=== PATIENT | female | born 1960 | race African-American/Black ===

== ENCOUNTER 2021-06-02 11:04 | Inpatient (IN) | payer MEDICAID ==
[~2021-06-02] VITALS: Ht 167.6 cm; Wt 71.7 kg
[2021-06-02 11:58] LABS: BASOPHILS % 0.5 % (0.0-2.0); EOSINOPHILS % 0.1 % (0.0-5.0); HEMATOCRIT. 43.9 % (36.0-48.0); HEMOGLOBIN. 14.4 g/dL (12.0-16.0); LYMPHOCYTES % 9.4 % (20.0-50.0); MEAN CORPUSCULAR HEMOGLOBIN 27.2 pg (28.0-32.0); MEAN CORPUSCULAR VOLUME 83.1 fL (81.0-99.0); MEAN PLATELET VOLUME 8.8 fl (7.4-10.4); MONOCYTES % 3.9 % (2.0-8.0); NEUTROPHILS % 86.1 % (40.0-76.0); PLATELET 307 x1000/uL (130-400); RED BLOOD CELL COUNT 5.29 mill/uL (4.2-5.4); RED CELL DISTRIBUTION WIDTH 13.3 % (11.6-14.6)
[2021-06-02 12:05] LABS: CHLORIDE 104 mEq/L (98-107)
[2021-06-02] MEDS ORDERED: MORPHINE SULFATE 4 MG/ML CPJ (NOT FOR IM USE) IV STA (12:19)
[2021-06-02] MEDS: ENALAPRIL 5MG TABLET PO SCH ×2 (13:02→13:51)
[2021-06-02 14:50] LABS: INR 1.4; PROTHROMBIN TIME 14.4 sec (9.6-11.0)
[2021-06-02] MEDS ORDERED: IOHEXOL-300 100 ML BOTTLE ONE (15:13)
[2021-06-02] MEDS ORDERED: AMLODIPINE 5MG TABLET PO ONE (15:30)
[2021-06-02] MEDS ORDERED: CLONIDINE 0.1MG TABLET PO PRN (16:45)
[2021-06-02] MEDS ORDERED: IPRATROPIUM/ALBUTEROL 0.5-3(2.5)MG/3ML NEB HHN PRN (16:45)
[2021-06-02] MEDS ORDERED: ACETAMINOPHEN 325MG TABLET PO PRN (16:45)
[2021-06-02] MEDS ORDERED: HYDROCODONE/ACETAMINOPHEN 5/325MG TABLET PO PRN (16:45)
[2021-06-02] MEDS ORDERED: LORAZEPAM 0.5MG TABLET PO PRN (16:45)
[2021-06-02] MEDS: METRONIDAZOLE 500 MG PREMIX 100 ML IV SCH (17:10)
[2021-06-02] MEDS: PANTOPRAZOLE SODIUM 40 MG/VIAL IV SCH (17:11)
[2021-06-02] MEDS: MORPHINE SULFATE 2 MG/ML CPJ (NOT FOR IM USE) IV PRN (17:11)
[2021-06-02] MEDS ORDERED: CEFTRIAXONE 1 G PREMIX 50 ML IV SCH (17:45)
[2021-06-03] MEDS: MORPHINE SULFATE 2 MG/ML CPJ (NOT FOR IM USE) IV PRN ×2 (00:09→04:09)
[2021-06-03] MEDS: METRONIDAZOLE 500 MG PREMIX 100 ML IV SCH ×3 (03:52→21:34)
[2021-06-03 09:30] LABS: BASOPHILS % 0.3 % (0.0-2.0); EOSINOPHILS % 0.6 % (0.0-5.0); HEMATOCRIT. 38.9 % (36.0-48.0); HEMOGLOBIN. 12.5 g/dL (12.0-16.0); LYMPHOCYTES % 17.3 % (20.0-50.0); MEAN CORPUSCULAR HEMOGLOBIN 26.9 pg (28.0-32.0); MEAN CORPUSCULAR VOLUME 83.7 fL (81.0-99.0); MEAN PLATELET VOLUME 8.5 fl (7.4-10.4); MONOCYTES % 11.1 % (2.0-8.0); NEUTROPHILS % 70.7 % (40.0-76.0); PLATELET 262 x1000/uL (130-400); RED BLOOD CELL COUNT 4.64 mill/uL (4.2-5.4); RED CELL DISTRIBUTION WIDTH 13.6 % (11.6-14.6)
[2021-06-03 09:31] LABS: CHLORIDE 105 mEq/L (98-107)
[2021-06-03] MEDS: ACETAMINOPHEN 325MG TABLET PO PRN ×2 (11:58→19:49)
[2021-06-03 14:21] LABS: TOTAL IRON BINDING CAPACITY 296 ug/dL (250-450)
[2021-06-03] MEDS ORDERED: NALOXONE HCL 0.4MG/ML VIAL IV PRN (14:30)
[2021-06-03] MEDS ORDERED: SODIUM CHLORIDE 0.9% 1,000 ML IV NR (15:00)
[2021-06-03] MEDS ORDERED: IRON SUCROSE COMPLEX 100 MG/5 ML ML IV SCH (15:15)
[2021-06-03 15:32] LABS: FOLIC ACID (FOLATE) SERUM 18.9 ng/mL (>5.38)
[2021-06-03 16:00] VITALS: BP 128/74
[2021-06-03] MEDS ORDERED: ENAL20TA18 MT (16:02)
[2021-06-03 16:14] VITALS: BP 120/58
[2021-06-03] MEDS ORDERED: INFLUENZA VACCINE 05/PF 0.5 ML SYRINGE IM ONE (16:15)
[2021-06-03] MEDS: PANTOPRAZOLE SODIUM 40 MG/VIAL IV SCH (17:00)
[2021-06-03] MEDS: CEFTRIAXONE 1,000 MG in DEXTROSE 5% WATER 50 ML IV SCH (19:12)
[2021-06-03 20:00] VITALS: BP 125/75
[2021-06-03] MEDS ORDERED: IOHEXOL-350 100 ML BOTTLE ONE (20:44)
[2021-06-03] MEDS: IRON SUCROSE COMPLEX 100 MG/5 ML ML IV SCH (21:34)
[2021-06-03 22:38] LABS: CLARITY URINE CLOUDY (CLEAR); COLOR URINE YELLOW (YELLOW); KETONES URINE NEGATIVE (NEGATIVE); LEUKOCYTE ESTERASE URINE 2+ (NEGATIVE); NITRITE URINE NEGATIVE (NEGATIVE); OCCULT BLOOD URINE 1+ (NEGATIVE); PH URINE 5.5 (4.5-8.0); PROTEIN URINE NEGATIVE (NEGATIVE); SPECIFIC GRAVITY URINE 1.059 (1.005-1.030); UROBILINOGEN URINE 0.2 E.U./dL (0.2-1.0)
[2021-06-03 22:47] LABS: *AMPHETAMINES SCREEN URINE NEGATIVE (NEGATIVE); *BARBITURATES SCREEN URINE NEGATIVE (NEGATIVE); *BENZODIAZEPINES SCREEN URINE NEGATIVE (NEGATIVE); *COCAINE SCREEN URINE NEGATIVE (NEGATIVE); METHADONE URINE SCREEN NEGATIVE (NEGATIVE); OPIATES URINE SCREEN PRESUMTIVE POSITIVE (NEGATIVE)
[2021-06-03 22:48] LABS: CANNABINOID URINE SCREEN NEGATIVE (NEGATIVE); PHENCYCLIDINE URINE SCREEN NEGATIVE (NEGATIVE)
[2021-06-04] VITALS: BP 128/73
[2021-06-04 01:14] LABS: HEMATOCRIT 35.1 % (36.0-48.0); HEMOGLOBIN 11.6 g/dL (12.0-16.0)
[2021-06-04 04:00] VITALS: BP 109/72
[2021-06-04] MEDS: ONDANSETRON HCL 4MG/2ML INJ IV PRN (05:05)
[2021-06-04] MEDS: METRONIDAZOLE 500 MG PREMIX 100 ML IV SCH ×3 (05:05→22:52)
[2021-06-04 05:36] LABS: CHLORIDE 107 mEq/L (98-107)
[2021-06-04 06:35] LABS: HEMATOCRIT 37.1 % (36.0-48.0); HEMOGLOBIN 12.3 g/dL (12.0-16.0)
[2021-06-04 08:00] VITALS: BP 118/66
[2021-06-04] MEDS: PANTOPRAZOLE SODIUM 40 MG/VIAL IV SCH ×3 (09:00→17:55)
[2021-06-04 13:03] LABS: HEMATOCRIT 34.8 % (36.0-48.0); HEMOGLOBIN 11.3 g/dL (12.0-16.0)
[2021-06-04] MEDS ORDERED: SODIUM CHLORIDE 0.9% 1,000 ML IV NR (15:00)
[2021-06-04 16:00] VITALS: BP 129/71
[2021-06-04] MEDS: CEFTRIAXONE 1,000 MG in DEXTROSE 5% WATER 50 ML IV SCH (17:55)
[2021-06-04 18:59] LABS: HEMATOCRIT 36.2 % (36.0-48.0); HEMOGLOBIN 11.5 g/dL (12.0-16.0)
[2021-06-04 20:00] VITALS: BP 137/84
[2021-06-04] MEDS ORDERED: NA PHOS,M-B/NA PHOS,DI-BA ENEMA 118ML PR NR (21:00)
[2021-06-04] MEDS ORDERED: SORBITOL 70% SOLN 30ML PO NR (21:00)
[2021-06-04] MEDS: ENALAPRIL 5MG TABLET PO SCH (22:52)
[2021-06-04] MEDS: IRON SUCROSE COMPLEX 100 MG/5 ML ML IV SCH (22:53)
[2021-06-05] VITALS: BP 130/78
[2021-06-05] MEDS: ONDANSETRON HCL 4MG/2ML INJ IV PRN (00:56)
[2021-06-05 00:57] LABS: HEMATOCRIT 36.8 % (36.0-48.0); HEMOGLOBIN 11.8 g/dL (12.0-16.0)
[2021-06-05 04:00] VITALS: BP 113/55
[2021-06-05 04:46] LABS: BASOPHILS % 0.8 % (0.0-2.0); EOSINOPHILS % 3.1 % (0.0-5.0); HEMATOCRIT. 35.7 % (36.0-48.0); HEMOGLOBIN. 11.7 g/dL (12.0-16.0); LYMPHOCYTES % 20.3 % (20.0-50.0); MEAN CORPUSCULAR HEMOGLOBIN 27.3 pg (28.0-32.0); MEAN CORPUSCULAR VOLUME 83.6 fL (81.0-99.0); MEAN PLATELET VOLUME 8.7 fl (7.4-10.4); NEUTROPHILS % 64.8 % (40.0-76.0); PLATELET 261 x1000/uL (130-400); RED BLOOD CELL COUNT 4.27 mill/uL (4.2-5.4); RED CELL DISTRIBUTION WIDTH 13.3 % (11.6-14.6)
[2021-06-05 04:53] LABS: INR 1.1; PROTHROMBIN TIME 11.5 sec (9.6-11.0)
[2021-06-05 05:01] LABS: CHLORIDE 109 mEq/L (98-107)
[2021-06-05] MEDS ORDERED: SORBITOL 70% SOLN 30ML PO NR (06:00)
[2021-06-05] MEDS ORDERED: NA PHOS,M-B/NA PHOS,DI-BA ENEMA 118ML PR NR (06:00)
[2021-06-05] MEDS: METRONIDAZOLE 500 MG PREMIX 100 ML IV SCH ×3 (06:04→22:07)
[2021-06-05 08:02] VITALS: BP 122/60
[2021-06-05] MEDS: PANTOPRAZOLE SODIUM 40 MG/VIAL IV SCH ×2 (09:04→17:08)
[2021-06-05] MEDS: MORPHINE SULFATE 2 MG/ML CPJ (NOT FOR IM USE) IV PRN (09:05)
[2021-06-05 12:00] VITALS: BP 131/85
[2021-06-05] MEDS ORDERED: MIDAZOLAM HCL 2 MG/2 ML VIAL IV PRN (14:19)
[2021-06-05] MEDS ORDERED: FENTANYL CITRATE/PF 50MCG/ML 2ML VIAL IV PRN (14:22)
[2021-06-05 16:00] VITALS: BP 97/68
[2021-06-05 16:18] LABS: HEMATOCRIT 35.3 % (36.0-48.0); HEMOGLOBIN 11.3 g/dL (12.0-16.0)
[2021-06-05] MEDS: CEFTRIAXONE 1,000 MG in DEXTROSE 5% WATER 50 ML IV SCH (18:37)
[2021-06-05 20:00] VITALS: BP 122/58
[2021-06-05 20:26] LABS: HEMATOCRIT 36.2 % (36.0-48.0); HEMOGLOBIN 11.4 g/dL (12.0-16.0)
[2021-06-05] MEDS: ENALAPRIL 5MG TABLET PO SCH (22:07)
[2021-06-05] MEDS: IRON SUCROSE COMPLEX 100 MG/5 ML ML IV SCH (22:08)
[2021-06-06] VITALS: BP 143/77
[2021-06-06] MEDS ORDERED: DIPHENHYDRAMINE 50MG/ML VIAL IV PRN
[2021-06-06 04:00] VITALS: BP 130/69
[2021-06-06] MEDS: METRONIDAZOLE 500 MG PREMIX 100 ML IV SCH (05:33)
[2021-06-06 06:34] LABS: HEMATOCRIT 34.5 % (36.0-48.0); HEMOGLOBIN 11.3 g/dL (12.0-16.0)
[2021-06-06 08:00] VITALS: BP 121/62
[2021-06-06] MEDS: PANTOPRAZOLE SODIUM 40 MG/VIAL IV SCH (09:00)
[2021-06-06 12:00] VITALS: BP 128/76
[2021-06-06] MEDS ORDERED: METR500T MT (13:01)
[2021-06-06 13:11] LABS: ATYPICAL pANCA <1:20 titer (Neg:<1:20); SACCHAROMYCES CEREVISIAE IGG <20.0 Units (0.0-24.9); SACCHAROMYCES CEREVISIAE IGM <20.0 Units (0.0-24.9)
[2021-06-06 13:22] VITALS: BP 121/62
[2021-06-08 04:10] LABS: OVA & PARASITE EXAM Final report (.)
== END 2021-06-06 15:05 | disposition home or self-care (01) | DRG 249 ==
LOC: ER 11:04 → MICUSO 16:04 → EDBEDREQ 16:40 → 6WST 06-03 12:26
PROVIDERS: ADMIT Internal Medicine; ATTEND Internal Medicine
PROC: 0DBM8ZX Excision of Descending Colon, Via Natural or Artificial Opening Endoscopic, Diagnostic (ICD-10-PCS; principal; 2021-06-05)
DX: K52.9 Noninfective gastroenteritis and colitis, unspecified (principal); E87.1 Hypo-osmolality and hyponatremia; D50.0 Iron deficiency anemia secondary to blood loss (chronic); G89.29 Other chronic pain; K64.8 Other hemorrhoids; K21.9 Gastro-esophageal reflux disease without esophagitis; I16.0 Hypertensive urgency; M48.00 Spinal stenosis, site unspecified; Z60.2 Problems related to living alone; Z20.822 Contact with and (suspected) exposure to COVID-19; M54.50 Low back pain, unspecified; I10 Essential (primary) hypertension; Z90.710 Acquired absence of both cervix and uterus; Z88.8 Allergy status to other drugs, medicaments and biological substances; Z98.891 History of uterine scar from previous surgery; K29.70 Gastritis, unspecified, without bleeding; N39.0 Urinary tract infection, site not specified
CPT/HCPCS: 36415; 74174; 74177; 80048; 80053; 80305; 81003; 82270; 82607; 82746; 83540; 83550; 83605; 85014; 85018; 85025; 85044; 86256; 86671; 86850; 86900; 87015; 87045; 87177; 87209; 87426; 87427; 87449; 87493; 88305; 93005; 99285; C9113; J0696; J1200; J2270; J2405; J3490; J7030; J7060; Q9967